=== PATIENT | female | born 1965 | race Caucasian/White ===

== ENCOUNTER 2022-07-12 14:21 | Emergency (ER) | payer BC, OTHER ==
[~2022-07-12] VITALS: Ht 165.1 cm; Wt 76.8 kg
[2022-07-12 14:55] VITALS: BP 112/78
[2022-07-12] MEDS ORDERED: OXYC-134 PO (19:59)
[2022-07-12] MEDS ORDERED: HYDROcodone/acetaminophen 5mg/325mg tablet PO ONE (20:00)
== END 2022-07-12 20:15 | disposition home or self-care (01) ==
LOC: ER 14:21
DX: S01.81XA Laceration without foreign body of other part of head, initial encounter (principal); S01.21XA Laceration without foreign body of nose, initial encounter; Z88.8 Allergy status to other drugs, medicaments and biological substances; Z88.6 Allergy status to analgesic agent; Z79.899 Other long term (current) drug therapy; W22.8XXA Striking against or struck by other objects, initial encounter; Y93.89 Activity, other specified; Y92.89 Other specified places as the place of occurrence of the external cause; Y99.8 Other external cause status
CPT/HCPCS: 70450; 70486; 72125; 99284